=== PATIENT | male | born 2000 | race Caucasian/White ===

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

== ENCOUNTER 2022-10-03 16:19 | Emergency (ER) | payer OTHER ==
[2022-10-03] VITALS (7 sets, daily range): BP systolic 79–109; BP diastolic 60–77
[~2022-10-03] VITALS: Ht 175.3 cm; Wt 70.3 kg
[~2022-10-03 16:19] MED LIST changes: +PERCOCET 5/325M1 TAB PO
[2022-10-03 18:16] LABS: BASO% 0.2 % (0-3); EOS% 1.1 % (0-8); HEMATOCRIT 45.2 % (39.0-50.0); HEMOGLOBIN 15.2 g/dl (14.0-18.0); LYMPH% 28.4 % (15-41); MEAN CORPUSCULAR HGB 28.6 pG CALC (26.0-32.0); MEAN CORPUSCULAR HGB CONC 33.6 g/dL CAL (32.0-36.0); MONO% 8.4 % (2-13); NEUT# 5.1 thou/uL (1.82-7.42); NEUT% 61.9 % (42-76); RED BLOOD COUNT 5.32 mill/uL (4.70-6.10); RED CELL DISTRI WIDTH 11.8 % (11.5-15.5)
[2022-10-03 18:39] LABS: ALKALINE PHOSPHATASE 56 u/l (38-126); ANION GAP 13 (6-22 (CALC)); BILIRUBIN, TOTAL 0.6 mg/dL (0.2-1.3); BUN 11 mg/dL (9-20); BUN/CREATININE RATIO 13 (12-20 (CALC)); CARBON DIOXIDE 27 mmol/l (22-30); CHLORIDE 102 mmol/l (95-108); CREATININE 0.8 mg/dL (0.7-1.3); GFR FOR AFR.AMER. > 60 ML/MIN (>=60 (CALC)); GFR OTHER RACES > 60 ML/MIN (>=60 (CALC)); POTASSIUM 3.7 mmol/l (3.5-5.1); SGOT/AST 30 u/l (17-59); SODIUM 139 mmol/l (137-146)
[2022-10-03 18:40] LABS: ALBUMIN 5.3 g/dL (3.2-5.0)
== END 2022-10-03 19:13 | disposition home or self-care (01) ==
LOC: ED 16:19
PROVIDERS: Family Medicine
DX: R51.9 Headache, unspecified (principal)